=== PATIENT | female | born 1970 | race Caucasian/White ===

== ENCOUNTER 2017-12-23 20:09 | Emergency (ER) | payer BC ==
[~2017-12-23] VITALS: Ht 152.4 cm; Wt 81.6 kg
[2017-12-23] MEDS ORDERED: HYDROCODON APAP (20:22)
[2017-12-23] MEDS ORDERED: ALPRAZOLAM 0.5 MG TABLET (20:22)
[2017-12-23] MEDS ORDERED: SERTRALINE HCL 50 MG TABLET (20:22)
[2017-12-23] MEDS ORDERED: ATORVASTATIN 20 MG TABLET (20:22)
--- NOTE | 2017-12-23 20:25 | NUR ---
STEWART BURDEN MD AT BEDSIDE FOR MSE.
--- NOTE | 2017-12-23 20:28 | NUR ---
PT C/OHEADACHE SINCE THIS MORNING. STATES SHE TOOK A NORCO EARLIER, WHICH HELPED, BUT NOW THE PAIN IS BACK. C/O N/V. HAS A HX OF MIGRAINES.
[2017-12-23] MEDS ORDERED: ONDANSETRON 4 MG/2 ML VIAL IM ONE (20:30)
[2017-12-23] MEDS ORDERED: MORPHINE SULFATE 4 MG/1 ML DISP.SYRIN IM ONE (20:30)
[2017-12-23] MEDS ORDERED: MORPHINE SULFATE 4 MG/1 ML DISP.SYRIN ONE (20:33)
[2017-12-23] MEDS ORDERED: ONDANSETRON 4 MG/2 ML VIAL ONE (20:33)
--- NOTE | 2017-12-23 20:51 | NUR ---
Patient discharged to home in stable conditon. Written and verbal after care instructions given. Patient verbalizes understanding of instructions. PT states her pain is "getting better." Pt ambulated from ER w/ steady gait accompanied by . No distress noted.
[2017-12-23 20:54] VITALS: BP 128/84
== END 2017-12-23 20:54 | disposition home or self-care (01) ==
LOC: ER 20:10
DX: G43.909 Migraine, unspecified, not intractable, without status migrainosus (principal); J45.909 Unspecified asthma, uncomplicated; E78.00 Pure hypercholesterolemia, unspecified; Z79.899 Other long term (current) drug therapy; Z88.0 Allergy status to penicillin
CPT/HCPCS: A4663; J2270; J2405